=== PATIENT | female | born 1995 | race African-American/Black ===

== ENCOUNTER 2023-03-07 14:04 | Emergency (ER) | payer OTHER ==
[~2023-03-07] VITALS: Ht 162.6 cm; Wt 58.4 kg
[2023-03-07] MEDS ORDERED: ACETAMINOPHEN TAB 650MG DOSE (2X325MG) PO ONE (17:35)
[2023-03-07] MEDS ORDERED: MIRA3350 PO (19:20)
[2023-03-07 19:26] VITALS: BP 122/84; TEMP 97; O2SAT 100
== END 2023-03-07 19:27 | disposition home or self-care (01) ==
LOC: M ED 14:04
DX: S39.011A Strain of muscle, fascia and tendon of abdomen, initial encounter (principal); K59.00 Constipation, unspecified; Z79.899 Other long term (current) drug therapy

== ENCOUNTER → 2023-08-30 | Outpatient (CLI) | payer OTHER ==
[~2023-08-30] MED LIST: ISOVUE-300 61% 100ML VIAL As Ordered ONE; LIDOCAINE 1% MDV 20ML VIAL As Ordered ONE; MIRA3350 PO; TRIAMCINOLONE ACETONIDE SUSP 40MG/ML 1ML VIAL As Ordered ONE
== END ==
LOC: M RAD 15:06
PROVIDERS: ATTEND Physician Assistant Surgical
DX: S73.122A Ischiocapsular ligament sprain of left hip, initial encounter (principal); X58.XXXA Exposure to other specified factors, initial encounter; Y92.9 Unspecified place or not applicable
CPT/HCPCS: 20610; 77002; J3301; Q9967

== ENCOUNTER → 2023-12-14 | Outpatient (REF) | payer OTHER ==
[~2023-12-14] MED LIST changes: -ISOVUE-300 61% 100ML VIAL As Ordered ONE; -LIDOCAINE 1% MDV 20ML VIAL As Ordered ONE; -TRIAMCINOLONE ACETONIDE SUSP 40MG/ML 1ML VIAL As Ordered ONE
[2023-12-14 18:35] LABS: Trichomonas vaginalis (AMP) NOT DETECTED (NEGATIVE)
[2023-12-14 18:59] LABS: GC DNA AMPLIFICATION NEGATIVE (NEGATIVE)
== END ==
LOC: M LAB REF 16:21
PROVIDERS: ATTEND Nurse Practitioner Family
DX: R30.0 Dysuria (principal); Z11.3 Encounter for screening for infections with a predominantly sexual mode of transmission

== ENCOUNTER 2024-03-13 09:27 | Day surgery (SDC) | payer OTHER ==
[~2024-03-13] VITALS: Ht 157.5 cm; Wt 57.4 kg
[~2024-03-13 09:27] MED LIST changes: +IBUP80TA PO; +VITA100093 PO; +VITA1CAP25 PO
[2024-03-13] MEDS ORDERED: LR 1,000 ML IV SCH ×2 (09:50→13:15)
[2024-03-13] MEDS ORDERED: LIDOCAINE 2% 100MG/5ML SDV (FOR ANES.) As Ordered ONE (10:19)
[2024-03-13] MEDS ORDERED: MIDAZOLAM INJ 2MG/2ML VIAL As Ordered ONE (10:21)
[2024-03-13] MEDS ORDERED: fentaNYL 100 MCG/2 ML INJECTION As Ordered ONE (10:22)
[2024-03-13] MEDS ORDERED: propofoL 200 MG/20 ML VIAL As Ordered ONE (12:42)
[2024-03-13] MEDS ORDERED: ACETAMINOPHEN 1000MG 100ML IV BAG As Ordered ONE (12:42)
[2024-03-13] MEDS ORDERED: ONDANSETRON 4MG 2ML VIAL As Ordered ONE (12:43)
[2024-03-13] MEDS ORDERED: KETOROLAC 60MG 2ML VIAL As Ordered ONE (12:43)
[2024-03-13] MEDS: LIDOCAINE 1% SDV 30ML VIAL As Ordered ONE (13:00)
[2024-03-13] MEDS: SILVER NITRATE APPLICATOR (1 = QTY 10) As Ordered ONE (13:00)
[2024-03-13] MEDS ORDERED: ONDANSETRON 4MG 2ML VIAL IV PRN (13:15)
[2024-03-13] MEDS ORDERED: fentaNYL 100 MCG/2 ML INJECTION IV PRN (13:15)
[2024-03-13] MEDS ORDERED: oxyCODONE 5MG TAB PO PRN ×2 (13:15→13:40)
[2024-03-13] MEDS ORDERED: HYDROMORPHONE HCL 0.5 MG/ 0.5 ML SYRINGE IV PRN (13:15)
[2024-03-13 15:20] VITALS: BP 132/94; TEMP 98.6; O2SAT 100
== END 2024-03-13 15:48 | disposition home or self-care (01) ==
LOC: M SDC 09:27
PROVIDERS: ATTEND Obstetrics & Gynecology
DX: N84.0 Polyp of corpus uteri (principal)
CPT/HCPCS: 36415; 58558; 81025; 85014; 85018; 88305; J0131; J1100; J1885; J2250; J2405; J3010